=== PATIENT | male | born 1995 | race Caucasian/White ===

== ENCOUNTER → 2017-03-22 | Outpatient (CLI) | payer OTHER ==
--- NOTE | 2017-03-22 19:57 | DIAGNOSTIC IMAGING REPORT ---
ORBIT RADIOGRAPHS 3 VIEWS HISTORY: pre-MRI screening. COMPARISON: None. FINDINGS: There are no radiopaque foreign bodies identified within the orbits. IMPRESSION: No radiopaque foreign bodies identified within the orbits. Electronically signed by: Puma Donaldson M.D. 03/22/2017 7:56 PM Dictated Date/Time: 03/22/2017 7:56 PM
--- NOTE | 2017-03-23 15:58 | DIAGNOSTIC IMAGING REPORT ---
MRI OF THE LEFT KNEE WITHOUT CONTRAST CLINICAL HISTORY: Persistent anterior left knee pain. Remote history of injury. COMPARISON STUDY: Left knee radiographs March 15, 2017. TECHNIQUE: Utilizing a 1.5 Fadia magnet and dedicated coil, multiplanar, multiecho imaging of the left knee was performed without intravenous or intraarticular contrast. FINDINGS: Alignment of the left knee is anatomic. The extensor mechanism is intact. There is minimal patchy increased T2 marrow signal within the medial aspect of the medial femoral condyle. No fracture is present. There is no suspicious marrow replacement. The anterior and posterior cruciate ligaments are intact. The medial collateral ligament and lateral collateral ligament complex are also intact. No lateral meniscal tear is present. There is linear signal within the posterior horn and body of the medial meniscus with equivocal extension to articular surface. No additional meniscal abnormalities are identified. No cartilage abnormality is identified. There is no joint effusion. IMPRESSION: 1. Intact cruciate and collateral ligaments. 2. Linear intrasubstance signal within the posterior horn and body of the medial meniscus. Possible articular surface extension. This finding is equivocal for oblique medial meniscal tear. 3. Minimal patchy increased T2 marrow signal within the medial femoral condyle. This is nonspecific but of doubtful significance. No fracture. 4. No chondrosis. Electronically signed by: Puma Donaldson M.D. 03/23/2017 3:57 PM Dictated Date/Time: 03/22/2017 9:37 PM
== END | disposition home or self-care (01) ==
LOC: C.MRI 19:03
PROVIDERS: ATTEND Physician Assistant
DX: M25.562 Pain in left knee (principal); R93.7 Abnormal findings on diagnostic imaging of other parts of musculoskeletal system

== ENCOUNTER → 2017-07-11 | Outpatient (CLI) | payer OTHER ==
--- NOTE | 2017-07-11 15:46 | DIAGNOSTIC IMAGING REPORT ---
R SHOULDER MIN 2 VIEWS CLINICAL HISTORY: 21 years-old Male presenting with RIGHT SHOULDER PAIN. TECHNIQUE: Internal rotation, transscapular Y, and axillary views of the right shoulder were obtained. COMPARISON: None. FINDINGS: Glenohumeral and acromioclavicular joints congruent. No subluxation of the humeral head. Normal morphology of the acromion process. No acute fracture or malalignment. No degenerative change. No radiographic soft tissue abnormality. Visualized portion of the right hemithorax normal. IMPRESSION: No acute osseous injury of the right shoulder. Electronically signed by: Mynor Dee M.D. 07/11/2017 3:44 PM Dictated Date/Time: 07/11/2017 3:44 PM
== END | disposition home or self-care (01) ==
LOC: C.RDSM 15:21
PROVIDERS: ATTEND Physician Assistant
DX: M25.511 Pain in right shoulder (principal)

== ENCOUNTER → 2017-07-25 | Outpatient (CLI) | payer OTHER ==
[~2017-07-25] MED LIST: GADAVIST IV PRN
--- NOTE | 2017-07-25 11:39 | DIAGNOSTIC IMAGING REPORT ---
FLUOROSCOPIC GUIDED RIGHT SHOULDER ARTHROGRAM FLUOROSCOPY TIME: 6 seconds. HISTORY: Right shoulder pain.. PROCEDURE: After obtaining written informed consent, the patient was placed supine on the fluoroscopy table. A suitable site for needle insertion was marked using fluoroscopic guidance. The right shoulder was prepped and draped in the usual sterile fashion. 1% lidocaine was used for skin, subcutaneous and deep soft tissue anesthesia. Under intermittent fluoroscopic guidance, a 22 gauge 2.5 inch spinal needle was inserted into the right glenohumeral joint.A total of 14 cc of one-to-one mixture of dilute Gadavist and Optiray 300 were injected. The needle was then removed. There were no apparent complications. The patient was transported to MR for further imaging. IMPRESSION: Fluoroscopic-guided right shoulder arthrogram without immediate complication. Total injected volume was 14 cc. MR portion of the examination will be dictated separately. Electronically signed by: Adrián Blanco M.D. 07/25/2017 11:38 AM Dictated Date/Time: 07/25/2017 11:38 AM
--- NOTE | 2017-07-25 12:28 | DIAGNOSTIC IMAGING REPORT ---
R UPPER EXT JOINT WITH CLINICAL HISTORY: 21 years-old Male presenting with PAIN IN RIGHT SHOULDER, limited range of motion for 2 weeks, history of remote fall with injury. TECHNIQUE: Multisequence, multiplanar MR imaging of the right shoulder was performed after the administration of intra-articular contrast. IV contrast: None. COMPARISON: Plain radiographs from 07/11/2017. FINDINGS: Localizer images: Unremarkable. Bone marrow: Normal bone marrow signal intensity. No bony edema. Articular cartilage: Articular cartilage preserved. Labrum: Minimal blunting and fraying of the posterior superior glenoid labrum located at 10-11 o'clock. No focal tear. Biceps and triceps tendons: Long head of the biceps tendon intact, including the biceps-labral complex. Long head of the biceps well seated in the intertubercular groove. Short head of the biceps tendon intact. Long head of the triceps tendon intact. Rotator cuff: Supraspinatus tendon intact. Infraspinatus tendon intact. Teres minor tendon intact. Increased signal intensity of the subscapularis tendon suggested proximal to the lesser tubercle, likely tendinosis. No focal tear identified. The transverse ligament portion of the subscapularis is also intact. Acromioclavicular joint: Acromioclavicular joint intact. No significant degenerative change. No evidence of an os acromiale. No significant fluid in the subacromial-subdeltoid bursa. Shoulder joint effusion: Expected intra-articular contrast, which distends the joint. No evidence of joint capsule stripping. Muscle: Normal muscle bulk and muscle signal intensity. Superficial soft tissue: No subcutaneous edema. IMPRESSION: 1. Minimal degenerative change of the posterior superior glenoid labrum suggested. This could suggest a mild manifestation of internal impingement. No focal labral tear. 2. Suggestion of tendinosis of the subscapularis. No rotator cuff tendon tear. Electronically signed by: Mynor Dee M.D. 07/25/2017 12:26 PM Dictated Date/Time: 07/25/2017 12:17 PM
== END | disposition home or self-care (01) ==
LOC: C.MRIBC 09:43
PROVIDERS: ATTEND Physician Assistant
DX: S49.91XA Unspecified injury of right shoulder and upper arm, initial encounter (principal); W19.XXXA Unspecified fall, initial encounter; M25.511 Pain in right shoulder